=== PATIENT | female | born 1960 | race Caucasian/White ===

== ENCOUNTER 2018-10-15 10:02 | Emergency (ER) | payer BC ==
[2018-10-15 10:16] VITALS: TEMP 98; BMI 27.1
[2018-10-15 11:27] LABS: BASO % 1.1 % (0-2.0); EOS % 0.3 % (0-4.5); HEMATOCRIT 45.3 % (32.4-45.2); HEMOGLOBIN 15.2 GM/dl (10.7-15.3); LYMPH % 16.4 % (8-40); MCH 31.1 pg (25.7-33.7); MCHC 33.7 g/dl (32.0-36.0); MEAN CELL VOLUME 92.5 fl (80-96); MEAN PLT VOLUME 10.1 fl (7.5-11.1); MONO % 4.9 % (3.8-10.2); NEUT % 77.3 % (42.8-82.8); PLATELET COUNT 243 K/MM3 (134-434); RBC 4.89 M/mm3 (3.60-5.2); RDW 12.1 % (11.6-15.6); WHITE BLOOD COUNT 6.7 K/mm3 (4.0-10.8)
--- NOTE | 2018-10-15 11:45 | PDOC ---
History of Present Illness - General Chief Complaint: Pain Stated Complaint: RIGHT UPPER QUADRANT PAIN Time Seen by Provider: 10/15/18 10:04 History Source: Patient Exam Limitations: No Limitations - History of Present Illness Initial Comments: 10/15/18 11:41 58 yo F h/o prior cholecystectomy, here with c/o right upper quad pain. started yesterday. constant with intermittent wave of sharp pain, does also have some flank pain. no dysuria, no hematuria, no h/;o renal colic. no mod factors. however started after bending. no new weakness or numbness no f/c . nausea no vomiting. no change to stool. Past History - Past Medical History Allergies/Adverse Reactions: Allergies Allergy/AdvReac Type Severity Reaction Status Date / Time No Known Allergies Allergy Verified 10/15/18 10:03 Home Medications: Ambulatory Orders NK [No Known Home Medication] 10/15/18 Anemia: No Asthma: No Cancer: No Cardiac Disorders: No CVA: No COPD: No CHF: No Dementia: No Diabetes: No GI Disorders: Yes (GERD IBS) Disorders: No HTN: No Hypercholesterolemia: No Liver Disease: No Seizures: No Thyroid Disease: No - Surgical History Abdominal Surgery: Yes (removal scar tissue intestine,l ovary,rectum) Appendectomy: No Cardiac Surgery: No Cholecystectomy: Yes Lung Surgery: No Neurologic Surgery: No Orthopedic Surgery: Yes - Immunization History Immunization Up to Date: No - Suicide/Smoking/Psychosocial Hx Smoking Status: No Smoking History: Never smoked Have you smoked in the past 12 months: No Number of Cigarettes Smoked Daily: 0 Information on smoking cessation initiated: No Hx Alcohol Use: Yes (SOCIAL) Drug/Substance Use Hx: No Substance Use Type: None Hx Substance Use Treatment: No Review of Systems - Review of Systems Constitutional: No: Chills, Diaphoresis, Fever HEENTM: No: Eye Pain, Blurred Vision Respiratory: No: Cough, Orthopnea, Shortness of Breath Cardiac (ROS): No: Chest Pain, Edema ABD/GI: Yes: Nausea. No: Diarrhea, Vomiting : No: Burning, Dysuria, Discharge Musculoskeletal: Yes: Back Pain Integumentary: No: Bruising, Change in Color, Erythema Neurological: No: Headache, Numbness Psychiatric: No: Frequent Crying Endocrine: No: See HPI, Excessive Sweating All Other Systems: Reviewed and Negative *Physical Exam - Vital Signs Last Vital Signs Temp Pulse Resp BP Pulse Ox 98 F 88 16 147/84 100 10/15/18 10:03 10/15/18 10:03 10/15/18 10:03 10/15/18 10:03 10/15/18 10:03 ED Treatment Course - LABORATORY CBC & Chemistry Diagram: 10/15/18 10:55 - ADDITIONAL ORDERS Additional order review: 10/15/18 10:55 RBC 4.89 MCV 92.5 MCHC 33.7 RDW 12.1 MPV 10.1 Neutrophils % 77.3 Lymphocytes % 16.4 Monocytes % 4.9 Eosinophils % 0.3 Basophils % 1.1 - RADIOLOGY Radiology Studies Ordered: Category Date Time Status SPIRAL- RENAL-STONE CT [CT] Stat CT Scan 10/15/18 10:38 Completed Medical Decision Making - Medical Decision Making 10/15/18 11:44 58 yo F with h/o vera here with right flank, ruq pain. differential retained stone, renal colic, uti, msk strain, plan ct a/p labs ua. pain control as needed. 10/15/18 13:[address] with no significant abnoramlity to explain pain. did not to have right renal cyst with slight increase in size from prior 2011. d/w pt . will need outpt fu us or mri. paged dr monge to update . given copy of report to patient. also given referral to dr Rodriguez urologist 10/15/18 13:31 cmp na 1390, k 4.5, cr 0.86, ast/ alt 40/37, t bili 1.o, calc 9.6. glu 99. ua neg nitrite, neg trace LE, 0-2 wbc 0/2 rbc. trace lysed blood. *DC/Admit/Observation/Transfer Diagnosis at time of Disposition: Renal cyst, Hematuria, Abdominal pain - Discharge Dispostion Disposition: HOME Condition at time of disposition: Good - Referrals Referrals: Figueroa George MD [Primary Care Provider] - Carlos James MD [Staff Physician] - Edvin Mantilla MD [Staff Physician] - - Patient Instructions Printed Discharge Instructions: Acute Abdominal Pain Additional Instructions: your ct abdomen and pelvis today was normal except for a renal cyst. this cyst has increased in size since prior exam on 2011. you need to follow up with a urologist. call dr mantilla to schedule. see referral information for phone number. you should also follow up with dr james to discuss possible repeat endoscopy. return for any chest pain or any difficulty breathing. or any concerns you may have. - Post Discharge Activity
[2018-10-15 12:07] LABS: ALBUMIN 4.3 g/dl (3.4-5.0); CALCIUM 9.6 mg/dl (8.5-10); CREATININE 0.9 mg/dl (0.55-1.3); POTASSIUM 4.5 mmol/L (3.5-5.1); TOT PROT 7.9 g/dl (6.4-8.2)
[2018-10-15 12:17] LABS: EPITHELIAL CELLS FEW /hpf
[2018-10-15 13:03] VITALS: BP 117/84; PULSE 80
== END 2018-10-15 13:48 | disposition home or self-care (01) ==
LOC: FER 10:02
DX: R10.11 Right upper quadrant pain (principal); R31.9 Hematuria, unspecified; N28.1 Cyst of kidney, acquired
CPT/HCPCS: 36415; 74176-TC; 80053; 81003; 81015; 83690; 85025; 99283-25